=== PATIENT | male | born 1940 | race Caucasian/White ===

== ENCOUNTER 2016-09-06 06:07 | Observation (INO) | payer MEDICARE, BC ==
[~2016-09-06 06:07] MED LIST: Buffered Lidocaine 1% SYRIN* 3 ML/SYR SYRINGE INTRADERM ONE; Dexamethasone IV* 4 MG/ML 1 ML (4 MG) IV SLOW PU ONE; Famotidine IV* 10 MG/ML 2 ML (20 mg) IV ONE
[2016-09-06] MEDS ORDERED: Famotidine IV* 10 MG/ML 2 ML (20 mg) ONE (06:21)
[2016-09-06] MEDS ORDERED: ceFAZolin 2 GM PREMIX(*) 2 GM/50 ML BAG IVPB ONE (06:21)
[2016-09-06] MEDS ORDERED: Dexamethasone IV* 4 MG/ML 1 ML (4 MG) ONE (06:21)
[2016-09-06] MEDS ORDERED: Lidocain 1% EPI 1:100,000 * 30 ML MDV ONE (06:49)
[2016-09-06] MEDS ORDERED: Thrombin 5,000 UNITS* 1 APPLIC KIT - topical use - TOPICAL ONE (06:50)
[2016-09-06] MEDS ORDERED: Bacitracin IV* 50,000 UNITS INJ ONE (06:50)
[2016-09-06] MEDS ORDERED: Lidocaine 2% PF* 5 ML VIAL ONE (07:35)
[2016-09-06] MEDS ORDERED: Propofol* 10 MG/ML 20 ML BTL IV PUSH ONE (07:35)
[2016-09-06] MEDS ORDERED: Succinylcholine* 20 MG/ML 10 ML VIAL ONE (07:35)
[2016-09-06] MEDS ORDERED: fentaNYL* 50 MCG/ML 2 ML VIAL (100 MCG VIAL) ONE (07:36)
[2016-09-06] MEDS ORDERED: HYDROcodone/ACETAMIN 5-325 MG* 1 TAB PO PRN ×2 (08:11→09:09)
[2016-09-06] MEDS ORDERED: fentaNYL* 50 MCG/ML 2 ML VIAL (100 MCG VIAL) IV PRN (08:11)
[2016-09-06] MEDS ORDERED: PROCHLORPERAZINE INJ 5 MG/ML 2 ML VIAL IV PRN (08:11)
[2016-09-06] MEDS ORDERED: Ondansetron INJ* 2 MG/ML VIAL ONE (08:16)
[2016-09-06] MEDS ORDERED: Phenylephrine IV* 40 MCG/ML 10 ML SYRINGE ONE (08:31)
[2016-09-06] MEDS ORDERED: EPHEDrine (Pressors)* 50 MG/ML VIAL ONE (08:50)
[2016-09-06] MEDS ORDERED: Ondansetron INJ* 2 MG/ML VIAL IV PRN (09:09)
[2016-09-06] MEDS ORDERED: Acetaminophen TAB* 325 MG PO PRN (09:09)
[2016-09-06] MEDS ORDERED: Magnesium Hydroxide LIQ* 30 ML UDC PO PRN (09:09)
--- NOTE | 2016-09-06 11:13 | RAD ---
INDICATION: L4-L5 discectomy, intraoperative guidance. COMPARISON: Correlation is made with a prior MRI of the lumbar spine from July 31, 2016. TECHNIQUE: A single crosstable portable x-ray study of the lumbar spine was obtained in the operating room. FINDINGS: There are multiple surgical instruments which project posterior centered at the L4-L5 level. IMPRESSION: INTRAOPERATIVE CONTROL FILMS.
--- NOTE | 2016-09-07 07:50 | PN ---
Progress Note - Progress Note SOAP: Subjective: []POD # 1 Doing well Feels leg better Objective: []Mild left EHL weakness (improved) Dressing intact Assessment: []Satis post op course Plan: []D/C today D/C instructions given
[2016-09-07 08:17] VITALS: BP 151/68
[2016-09-07] MEDS ORDERED: Lisinopril TAB* 10 MG PO SCH (09:00)
[2016-09-07] MEDS ORDERED: Aspirin EC Low Dose* 81 MG TAB.EC PO SCH (09:00)
[2016-09-07] MEDS ORDERED: Hydrochlorothiazide TAB* 25 MG PO SCH (09:00)
--- NOTE | 2016-09-10 13:16 | OP ---
DATE OF OPERATION: 09/06/16 - ROOM #349 DATE OF : 36 SURGEON: Sunil Jaimes MD BEVEL OPERATOR: ANDREW Syed ANESTHESIOLOGIST: Juanpablo Solano MD ANESTHESIA: General. PRE-OP DIAGNOSIS: Herniated nucleus pulposus L4-5 on the left. POST-OP DIAGNOSIS: Herniated nucleus pulposus L4-5 on the left. OPERATIVE PROCEDURE: Lumbar diskectomy L4-5 on the left with microdissection. DESCRIPTION OF PROCEDURE: After satisfactory general anesthesia was obtained, the patient was placed on operating table in a prone position, with the chest supported on the Juan A frame and the back slightly flexed. The lumbar region was then clipped, prepped, and draped in a sterile manner for lumbar laminectomy and a skin incision outlined from L4-L5. This incision was infiltrated with 1% Xylocaine with epinephrine, after which it was turned down sharply to the level of the lumbar fascia. The facia was divided along the spinous processes from L4-L5 and the paraspinal musculature stripped away from these posterior elements using the periosteal elevator and monopolar cautery. An intraoperative x-ray was obtained verifying proper interspace localization after which a partial hemilaminectomy was carried out primarily in the inferior aspect of the L4 lamina and medial aspect of the facet complex as well as the left side of the L5 lamina, as preoperative x-ray studies had suggested the inferior migration of a large disk fragment from the L4-5 disk to project over the L5 vertebral body. After ligamentum flavum was removed, the operating microscope was brought into the field and the remainder of the procedure was done under microscopic visualization. Utilizing microdissection, epidural venous structures were coagulated and divided. There was noted indeed to be a large inferiorly migrated fragment, which had projected down into the axillary region of the L5 nerve root exposure. By utilizing microdissection, this was dissected free from the dural sac in the L5 nerve root and removed in multiple pieces. An opening was then made into the posterior longitudinal ligament and disk space itself to make sure there were no further disk fragments and none were noted. At the conclusion of the decompression, the L5 nerve root was noted to be free in its course. The wound was then thoroughly irrigated; and, after assuring adequate hemostasis, a piece of Gelfoam was placed over the laminectomy defect. The fascia was then reapproximated with 0 Vicryl suture and the subcutaneous tissue was closed with 3-0 Vicryl suture and the skin closed with skin clips. The estimated blood loss was less than 50 cc and the final sponge, padding and needle counts were correct. The patient was taken to the recovery room, extubated and in stable condition. [id number]/[facility] #: [id number] MTDD
--- NOTE | 2016-09-14 03:24 | DS ---
DISCHARGE SUMMARY: DATE OF ADMISSION: 09/06/16 DATE OF DISCHARGE: 09/07/16 DISCHARGE DIAGNOSES: 1. Herniated nucleus pulposus, L4-5 on the left. 2. Hypertension. SPECIAL PROCEDURE: Lumbar diskectomy, L4-5 on the left. HOSPITAL COURSE: This 75-year-old male was seen in office with signs and symptoms of a lumbar radiculopathy for the past 2 or more months. He had failed to improve with conservative treatments and was admitted at this time for elective surgical intervention. On the day of admission, he was taken to surgery, where under general anesthesia, a lumbar diskectomy at L4-5 on the left operation was carried out. Postoperatively, he was feeling very well. He was ambulating independently. He was eating, drinking, and voiding without difficulty. Preoperative symptoms were resolving. Pain was well controlled with oral pain medication. On the first postoperative day, he was discharged home to the care of his family. Discharge instructions including activity level and wound care were discussed with the patient and provided. He will be seen in our office in approximately 7 to 10 days for followup and staple removal. DISCHARGE MEDICATIONS: None. ANDREW SUAREZ [id number]/[facility] #: [id number] PIA
== END 2016-09-07 09:50 | disposition home or self-care (01) ==
LOC: OR 06:07 → SSU 09:09
PROVIDERS: ADMIT Neurological Surgery; ATTEND Neurological Surgery
PROC: 01NB0ZZ Release Lumbar Nerve, Open Approach (ICD-10-PCS; 2016-09-06)
PROC: 0SB20ZZ Excision of Lumbar Vertebral Disc, Open Approach (ICD-10-PCS; principal; 2016-09-06 07:45)
DX: M51.16 Intervertebral disc disorders with radiculopathy, lumbar region (principal); I10 Essential (primary) hypertension
CPT/HCPCS: 72100; 88304; A9270-GY; G0378; J0330; J0690; J1100; J2405; J2704; J3010